=== PATIENT | male | born 1960 | race Caucasian/White ===

== ENCOUNTER 2025-01-30 13:06 | Day surgery (SDC) | payer MEDICARE, BC ==
[2025-01-30] VITALS (9 sets, daily range): BP systolic 94–122; BP diastolic 41–78; PULSE 58–80; RESP 12–18; TEMP 97.5; O2SAT 95–98
[2025-01-30] MEDS ORDERED: NITR0.4T51 SL (13:43)
[2025-01-30] MEDS ORDERED: LOSA1TAB39 PO (13:44)
[2025-01-30] MEDS ORDERED: OMEP20TA23 PO (13:45)
[2025-01-30] MEDS ORDERED: TAMS-55 PO (13:46)
[2025-01-30] MEDS ORDERED: POTA-207 PO (13:46)
[2025-01-30] MEDS ORDERED: FURO-150 PO (13:47)
[2025-01-30] MEDS ORDERED: ATOR10TA87 PO (13:47)
[2025-01-30] MEDS ORDERED: APIX5TAB3 PO (13:47)
--- NOTE | 2025-01-30 13:49 | ELECTROCARDIOGRAPH REPORT ---
[facility] Test Date: 2025-01-30 Test Time: 13:47:13 Pat Name: NOREEN HOUSE Department: [facility] Patient ID: [id number] Room: Gender: M Operating Room Surgical Technician: LUCY : 1960 Requested By: BENIGNO GONZALEZ Order Number: [id number] Reading MD: Dr. LOTTIE Spann Measurements Intervals Odell Rate: 86 P: 0 SD: 0 QRS: -75 QRSD: 126 T: 100 QT: 456 QTc: 546 Interpretive Statements Atrial fibrillation Paired ventricular premature complexes Nonspecific IVCD with LAD Inferior infarct, old Anterior infarct, old Lateral leads are also involved Electronically Signed On 01-30-2025 17:35:[address] LOTTIE Spann Please click the below link to view image of tracing.
[2025-01-30] MEDS ORDERED: AMIO200T27 PO (13:52)
[2025-01-30] MEDS ORDERED: METO-395 PO (13:52)
[2025-01-30 14:25] LABS: MEAN PLATELET VOLUME 9.1 FL (7.4-10.4); RED CELL DISTRIBUTION WIDTH 14.1 % (11.5-14.5)
[2025-01-30 14:37] LABS: APTT 25 SECONDS (22-32); INR 1.1 INR
[2025-01-30 14:38] LABS: CHOL/HDL RATIO 2.8 (0.00-4.99); CREATININE 1.22 MG/DL (0.60-1.10); LDL CHOLESTEROL 76 MG/DL (50-100); TOTAL CARBON DIOXIDE 26.8 MMOL/L (24-32); eGFR 59 ML/MIN
[2025-01-30] MEDS ORDERED: LIDOcaine 1% (10mg/ml) 2ml vial ONE (14:50)
[2025-01-30] MEDS ORDERED: fentaNYL/PF 50MCG/1 ML 2ML syringe ONE (14:50)
[2025-01-30] MEDS ORDERED: heparin 1,000unit/ml 10ml vial 10 ML ONE (14:50)
[2025-01-30] MEDS ORDERED: midazolam 1 mg/ML 2ml injection ONE ×2 (14:50→16:16)
[2025-01-30] MEDS ORDERED: verapamil 2.5 mg/ml inj IV ONE (14:50)
[2025-01-30] MEDS ORDERED: nitroGLYCERIN 500mcg/5mL D5W 5 ML IV ONE (14:51)
--- NOTE | 2025-01-30 16:35 | CARDIAC CATH REPORT ---
Cardiac Cath Report Providers to CC CC: ADALGISA GONZALEZ MD Procedure Comments: 1. Left Heart Catheterization 2. Selective Coronary Angiography 3. Right Radial Artery Access Brief History/Indications: 64yo man with HTN, HLD, Obesity, VT on event monitor referred for evaluation prior to consideration of VT ablation Techniques: After informed consent was obtained, the patient was brought to the cardiac catheterization laboratory and prepped and draped in usual sterile fashion for left heart catheterization and other procedures mentioned above. The right wrist was anesthetized with 1% Lidocaine and the right radial artery accessed via the Seldinger technique after which a 6Fr sheath was placed. Through this a TIG was used to engage the left ventricle, the left coronary artery, and a JR4 to engage the right coronary artery. At the conclusion of the case the sheath was removed and hemostasis obtained with a VascBand. Findings Findings: HEMODYNAMICS: LV: 104/- mmHg LVEDP: 13 mmHg Ao: 103/13, MAP 68 mmHg CORONARY ARTERIES: Rt Dominant LMCA: Luminal Irregularities LAD: Sluggish, JESIKA 2 flow with Luminal Irregularities D1: Luminal Irregularities D2: Luminal Irregularities LCx: Luminal Irregularities OM1: Luminal Irregularities RCA: Luminal Irregularities PDA: Luminal Irregularities PL: Luminal Irregularities Results Results: 1. No significant obstructive CAD 2. RRA Access, closed with VascBand RECOMMENDATIONS: 1. Recommend uptitration of max-tolerated GDMT BENIGNO GONZALEZ MD Jan 30, 2025 16:35
[2025-01-30] MEDS ORDERED: HYDROcodone/acetaminophen 5mg/325mg tablet PO PRN (17:05)
[2025-01-30] MEDS ORDERED: HYDROcodone/acetaminophen 10/325mg tab PO PRN (17:05)
== END 2025-01-30 19:10 | disposition home or self-care (01) ==
LOC: SSTAY O 13:06
PROVIDERS: ATTEND Student in an Organized Health Care Education/Training Program
DX: I47.20 Ventricular tachycardia, unspecified (principal); I49.3 Ventricular premature depolarization; I45.4 Nonspecific intraventricular block; I25.2 Old myocardial infarction; I11.0 Hypertensive heart disease with heart failure; I50.9 Heart failure, unspecified; E11.9 Type 2 diabetes mellitus without complications; E78.00 Pure hypercholesterolemia, unspecified; E66.9 Obesity, unspecified; I48.91 Unspecified atrial fibrillation; G47.33 Obstructive sleep apnea (adult) (pediatric); Z86.718 Personal history of other venous thrombosis and embolism; Z79.01 Long term (current) use of anticoagulants; Z79.899 Other long term (current) drug therapy; Z68.41 Body mass index [BMI] 40.0-44.9, adult
CPT/HCPCS: 36415; 80048; 80061; 85025; 85610; 85730; 93005; 93458; 99152; A6402; C1894; J1644; J2003; J2250; J3010; J3490; J7030; Q9967; Z7610; 99153; A6449